=== PATIENT | female | born 1985 | race African-American/Black ===

== ENCOUNTER 2018-03-11 23:36 | Inpatient (IN) | payer OTHER ==
--- NOTE | 2018-03-12 00:35 | PDOC ---
History of Present Illness - General History Source: Care Provider Exam Limitations: No Limitations - History of Present Illness Initial Comments: 03/12/18 01:32 The patient is a 32 year old female, with a significant past medical history of LLE DVT, cerebral palsy, profound MR, congenital quadriplegia, seizure disorder , sent to the ED from [facility] with, left leg swelling. Patient s aid at beside is unaware when the swelling onset because she works solely nights. Aid notes she believes it could be secondary to a fall, however, she is unaware. Allergies: Pork, porcine, shellfish Past surgical history: None reported. Social history: [place] patient. <Gali Beard - Last Filed: 03/12/18 01:31> <Nguyen Aleman - Last Filed: 03/12/18 21:51> - General Stated Complaint: LEG SWELLING Time Seen by Provider: 03/12/18 00:35 Past History <Gali Beard - Last Filed: 03/12/18 01:31> - Past Medical History Dementia: (PROFOUND MR, CONGENITAL SCOLIOSIS) Seizures: Yes - Surgical History Orthopedic Surgery: Yes (L. Ankle) - Suicide/Smoking/Psychosocial Hx Smoking Status: No Smoking History: Never smoked Have you smoked in the past 12 months: No Number of Cigarettes Smoked Daily: 0 Hx Alcohol Use: No Drug/Substance Use Hx: No Substance Use Type: None Hx Substance Use Treatment: No <Nguyen Aleman - Last Filed: 03/12/18 21:51> - Past Medical History Allergies/Adverse Reactions: Allergies Allergy/AdvReac Type Severity Reaction Status Date / Time Pork/Porcine Containing AdvReac Verified 03/12/18 00:45 Products shellfish derived AdvReac Verified 03/12/18 00:45 Home Medications: Ambulatory Orders Calcium 250Mg/Vit-D 125 Units [Oscal 250 mg+D -] 1 combo PO BID 10/18/15 Clindamycin Oral Solution [Cleocin Oral Solution -] 15 ml PO Q8H #450 ml Diazepam [Valium] 2 mg PO BID 10/18/15 Docusate Sodium [Colace -] 300 mg PO HS 10/18/15 Folic Acid 1 mg PO DAILY 10/18/15 Lamotrigine [Lamictal] 100 mg PO TID 10/18/15 Methylcellulose [Citrucel] 1,000 mg PO DAILY 10/18/15 Multivitamin [Poly-Vitamin] 1 each PO DAILY 10/18/15 Review of Systems - Review of Systems Able to Perform ROS?: No Comments:: 03/12/18 01:32 Unable to perform an ROS due to patients MR. <Gali Beard - Last Filed: 03/12/18 01:31> *Physical Exam - Vital Signs Last Vital Signs Temp Pulse Resp BP Pulse Ox 98.6 F 130 H 20 130/89 99 03/12/18 00:45 03/12/18 00:45 03/12/18 00:45 03/12/18 00:45 03/12/18 00:45 <Gali Beard - Last Filed: 03/12/18 01:31> Moderate Sedation - Procedure Monitoring Vital Signs: Procedure Monitoring Vital Signs Temperature 98.6 F 03/12/18 00:45 Pulse Rate 130 H 03/12/18 00:45 Respiratory Rate 20 03/12/18 00:45 Blood Pressure 130/89 03/12/18 00:45 O2 Sat by Pulse Oximetry (%) 99 03/12/18 00:45 <Gali Beard - Last Filed: 03/12/18 01:31> ED Treatment Course - LABORATORY CBC & Chemistry Diagram: 03/12/18 11:15 03/12/18 11:15 <Nguyen lAeman - Last Filed: 03/12/18 21:51> Medical Decision Making - Medical Decision Making 03/12/18 04:36 Patient Name: JOSE ANTONIO JENKINS Exam: Left lower extremity venous Doppler sonogram. Clinical indication: default value Findings The industrial order clerk was unable to visualize the distal left femoral vein and popliteal veins due to swelling. There is normal compression, augmentation, and spontaneous color Doppler flow demonstrated from the left mid femoral vein through to the left common femoral vein inclusive. Impression: 1. Rhit was unable to visualize the distal left femoral vein and popliteal veins due to swelling. 2. No evidence of DVT within the mid left femoral vein through the left common femoral vein. THIS DOCUMENT HAS BEEN ELECTRONICALLY SIGNED 03/12/18 07:48 Pt has a medial femoral head fracture on the left side. She will be placed in a knee immobilizer. Labs are pending, and we will discuss with ortho. Signed out to the day team <Nguyen Aleman - Last Filed: 03/12/18 21:51> *DC/Admit/Observation/Transfer - Attestations Scribe Attestion: 03/12/18 01:33 Documentation prepared by Gali Beard, acting as director medical economics for Nguyen Aleman MD. <Gali Beard - Last Filed: 03/12/18 01:31> <Nguyen Aleman - Last Filed: 03/12/18 21:51> Diagnosis at time of Disposition: Fracture of head of left femur - Discharge Dispostion Condition at time of disposition: Guarded
[2018-03-12 00:46] VITALS: BMI 32.9
--- NOTE | 2018-03-12 09:13 | PDOC ---
*Physical Exam - Vital Signs Last Vital Signs Temp Pulse Resp BP Pulse Ox 97.4 F L 64 20 120/64 100 03/12/18 05:46 03/12/18 05:46 03/12/18 05:46 03/12/18 05:46 03/12/18 05:46 - Physical Exam Comments: 03/12/18 09:09 gen: awake, nonverbal heart: +s1s2 reg lungs: cta b/l, poor inspiratory effort abd: soft, nt/nd ext: L knee swelling, in a straight leg brace, brisk cap refill distally Medical Decision Making - Medical Decision Making 03/12/18 09:10 pt signed out from the prior attending pending admission, labs, and ortho consult pt with a distal femur fx case discussed with Dr. Michel from orthopedics Dr. Thompson at the bedside microblog sent to [facility] for admission 03/12/18 09:36 case idscussed with [facility] who accepts pt to service under Dr. Cano *DC/Admit/Observation/Transfer Diagnosis at time of Disposition: Fracture of head of left femur - Discharge Dispostion Condition at time of disposition: Guarded Decision to Admit order: Yes Decision to Admit order Date/Time: Decision to Admit Order Category Date Time Status Decision to Admit to Hospital Routine Admission 03/12/18 08:14 Active - Referrals - Patient Instructions - Post Discharge Activity
--- NOTE | 2018-03-12 09:22 | CONSULT ---
Consult - text type - Consultation Consultation Note: ORTHOPEDIC SURGERY CONSULTATION NOTE Department of Orthopedic Surgery HISTORY OF PRESENT ILLNESS Ms. Bah is a 32 year old female with history of microcephaly and multiple joint contractures, who presents to [facility] Emergency Room with a medial femoral condyle fracture. The orthopedic service was consulted for a medial femoral condyle fracture. The patient is non-verbal and does not follow commands, which is her baseline. Her aide at bedside states that she [facility] an [facility] and was sent here after their staff noticed some swelling in her left lower extremity. The patient is bed-bound at baseline; Limited history available. FAMILY HISTORY na REVIEW OF SYMPTOMS A twelve-point review of systems was performed and was negative except as noted in HPI. PHYSICAL EXAM Right Upper Extremity: Skin warm, dry, and intact; no lesions, rashes or ulcers noted. Muscle mass equal and symmetric to contralateral side. No atrophy noted. No masses or effusions noted. No tenderness to palpation all joints; nontender throughout rest of extremity. Joints stable with no pathologic laxity. M/R/U/MSK /AX motor intact; SILT distally; 2+ radial pulses; Cap refill brisk. Tone and reflexes normal. Multiple upper extremity contractures of the hand and elbow and shoulder. Left Upper Extremity: Skin warm, dry, and intact; no lesions, rashes or ulcers noted. Muscle mass equal and symmetric to contralateral side. No atrophy noted. No masses or effusions noted. No tenderness to palpation all joins; nontender throughout rest of extremity. Joints stable with no pathologic laxity. M/R/U/MSK /AX motor intact; SILT distally; 2+ radial pulses; Cap refill brisk. Tone and reflexes normal. Multiple upper extremity contractures of the hand and elbow and shoulder. Right Lower Extremity: Skin warm, dry, and intact; no lesions, rashes or ulcers noted. Muscle mass equal and symmetric to contralateral side. No atrophy noted. No masses or effusions noted. No tenderness to palpation; nontender throughout rest of extremity. No cords or calf tenderness No significant calf/ankle edema. Full passive ROM, free from pain. Joints stable with no pathologic laxity. Moving toes spontaneously SILT distally; 2+ PT pulses by bedside doppler; Cap refill brisk. Multiple lower extremity contractures of the foot and knee. Left Lower Extremity: Skin warm, dry, and intact; no lesions, rashes or ulcers noted. Muscle mass equal and symmetric to contralateral side. No atrophy noted. No masses or effusions noted. Tenderness to palpation of the knee, specifically on the medial femoral condyle; nontender throughout rest of extremity. No cords or calf tenderness Mild ankle edema. No calf pain to palpation; Joints stable with no pathologic laxity. SILT distally; 2+ PT pulses by bedside doppler; Cap refill brisk. Multiple lower extremity contractures of the foot and knee. Active Problems Problem Status Category Onset Fracture femoral condyle Acute Medical Social History Smoking history Never smoked Aproximately how many 0 cigarettes per day Hx Alcohol Use No Allergies Allergy/AdvReac Type Severity Reaction Status Date / Time Pork/Porcine Containing AdvReac Verified 03/12/18 00:45 Products shellfish derived AdvReac Verified 03/12/18 00:45 Vital Signs (last) Temp Pulse Resp BP Pulse Ox 97.4 F L 64 20 120/64 100 03/12/18 05:46 03/12/18 05:46 03/12/18 05:46 03/12/18 05:46 03/12/18 05:46 Intake and Output 03/10/18 03/11/18 03/12/18 23:59 23:59 23:59 Other: Weight 180 lb Height 5 ft 2 in Body Mass Index (BMI) 32.9 Weight Measurement Method Estimated by Staff IMAGING I personally reviewed all radiographs, CT, and other imaging. They demonstrate a medial femoral condyle fracture. ASSESSMENT AND PLAN Ms. Bah is a 32 year old female presenting with a left sided medial femoral condyle fracture. We have reviewed the imaging and clinical findings in detail, as well as their potential implications. After appropriate informed discussion, the patient was placed in a well-padded [facility] knee immobilizer. Patient's aide at bedside was instructed regarding: non weight bearing on fractured side in knee immobilizer signs and symptoms of compartment syndrome and need to seek immediate care should new onset numbness, tingling, or significantly increasing pain occur. maintain strict elevation above the level of the heart for the next 3-4 days. - Ice to knee keeping the knee immobilizer clean and dry. avoiding NSAID medications. - physical therapy - nwb LLE All questions were answered. Thank you for involving our team in the care of this patient. Garo Thompson DO Orthopedic Surgery
[2018-03-12 11:22] LABS: BASO % 0.5 % (0-2.0); EOS % 1.3 % (0-4.5); HEMATOCRIT 32.6 % (32.4-45.2); HEMOGLOBIN 11.5 GM/dL (10.7-15.3); LYMPH % 38.2 % (8-40); MCH 30.6 pg (25.7-33.7); MCHC 35.2 g/dl (32.0-36.0); MEAN PLT VOLUME 6.9 fl (7.5-11.1); MONO % 10.7 % (3.8-10.2); NEUT % 49.3 % (42.8-82.8); PLATELET COUNT 372 K/MM3 (134-434); RBC 3.75 M/mm3 (3.60-5.2); RDW 12.8 % (11.6-15.6); WHITE BLOOD COUNT 10.9 K/mm3 (4.0-10.0)
[2018-03-12] MEDS ORDERED: SODIUM CHLORIDE 0.9% 1000 ML INFUS.BAG IV ONE (11:26)
[2018-03-12] MEDS ORDERED: ACETAMINOPHEN 1000 MG/100 ML VIAL (NON FORMULARY) IVPB ONE (11:26)
[2018-03-12 11:37] LABS: INR 1.2 (0.83-1.09); PROTHROMBIN TIME (PATIENT) 14.2 SEC (9.7-13.0)
[2018-03-12 11:41] LABS: ALBUMIN 2.6 g/dl (3.4-5.0); ALK PHOS 88 U/L (45-117); ANION GAP 8 MMOL/L (8-16); BILIRUBIN,TOTAL 0.4 mg/dL (0.2-1); BLOOD UREA NITROGEN 8 mg/dL (7-18); CALCIUM 8.8 mg/dL (8.5-10.1); CHLORIDE 104 mmol/L (98-107); CO2 27 mmol/L (21-32); CREATININE 0.4 mg/dL (0.55-1.3); GLUCOSE,RANDOM 105 mg/dL (74-106); SGOT/AST 25 U/L (15-37); SGPT/ALT 36 U/L (13-61); SODIUM 138 mmol/L (136-145); TOT PROT 6.6 g/dl (6.4-8.2)
--- NOTE | 2018-03-12 13:51 | HP ---
CHIEF COMPLAINT: fall at [place] PCP: Dr. Henriquez - pcp HISTORY OF PRESENT ILLNESS: Patient is a 32 year old female from [facility] with a past medical history of profound MR, largely non verbal, LLE DVT, cerebral palsy, congenital quadriplegia and seizure disorder. Patient was brought in to the ED for evaluation of left leg swelling. On admission a left leg xray shows a left sided medial femoral condyle fracture. Patient was seen by orthopedics and a knee immobilizer was placed. Patient will be monitored for any worsening pain. Patient's aide was at the bedside and denies knowledge of any cause of left leg injury or reason why patient left leg was swollen. Aide states that the patient is bedbound and is unable to get out of bed unassisted. She does not know how the patient sustained an injury to her left leg. I called [facility] to get further information of the possible cause of the fracture. Did patient attempt to get oob on her own? or was there a traumatic fall?I spoke to SHARA Myles who informed me that he is unaware of the cause of of the left leg swelling and possible injury. ER course was notable for: (1) vascular study, left leg negative (2) left distal femoral fracture (3) Recent Travel: PAST MEDICAL HISTORY: profound MR, largely non verbal, LLE DVT, cerebral palsy, congenital quadriplegia and seizure disorder. PAST SURGICAL HISTORY: Social History: Smoking: none Alcohol:none Drugs: none Family History: Allergies Pork/Porcine Containing Products Adverse Reaction (Verified 03/12/18 00:45) NOT GIVEN FOR SYNAGOGUE REASONS shellfish derived Adverse Reaction (Verified 03/12/18 00:45) HOME MEDICATIONS: Home Medications Medication Instructions Recorded Calcium 250Mg/Vit-D 125 Units 1 combo PO BID 10/18/15 [Oscal 250 mg+D -] Clindamycin Oral Solution [Cleocin 15 ml PO Q8H #450 ml 10/18/15 Oral Solution -] Diazepam [Valium] 2 mg PO BID 10/18/15 Docusate Sodium [Colace -] 300 mg PO HS 10/18/15 Folic Acid 1 mg PO DAILY 10/18/15 Lamotrigine [Lamictal] 100 mg PO TID 10/18/15 Methylcellulose [Citrucel] 1,000 mg PO DAILY 10/18/15 Multivitamin [Poly-Vitamin] 1 each PO DAILY 10/18/15 PHYSICAL EXAMINATION Vital Signs - 24 hr 03/12/18 03/12/18 03/12/18 00:45 05:46 11:26 Temperature 98.6 F 97.4 F L 100.4 F H Pulse Rate 130 H Pulse Rate [ 64 Apical] Respiratory 20 20 Rate Blood Pressure 130/89 Blood Pressure 120/64 [Left] O2 Sat by Pulse 99 100 Oximetry (%) 03/12/18 11:28 Temperature Pulse Rate Pulse Rate [ 116 H Apical] Respiratory 16 Rate Blood Pressure Blood Pressure 110/85 [Left] O2 Sat by Pulse 98 Oximetry (%) GENERAL: profound MR, in no acute distress. no pain noted. patient unable to verbalize her needs. HEAD: microcephaly EYES: Pupils equal, round and reactive to light, extraocular movements intact, sclera anicteric, conjunctiva clear. No lid lag. EARS, NOSE, THROAT: Ears normal, nares patent, oropharynx clear without exudates. Moist mucous membranes. NECK: Normal range of motion, supple without lymphadenopathy, JVD, or masses. LUNGS: Breath sounds equal, clear to auscultation bilaterally HEART: Regular rate and rhythm ABDOMEN: Soft, nontender, not distended, normoactive bowel sounds, no guarding, no rebound, no masses. UPPER EXTREMITIES: No peripheral edema. contracted. LOWER EXTREMITIES: No calf tenderness. No peripheral edema. non pitting edema , left foot, bed bound, contracted and deformed lower extremities. NEUROLOGICAL: non verbal PSYCHIATRIC:unable to assess secondary to MR SKIN: no signs of bruising or other signs of injury Laboratory Results - last 24 hr 03/12/18 03/12/18 03/12/18 11:15 11:15 11:15 WBC 10.9 H RBC 3.75 Hgb 11.5 Hct 32.6 MCV 87.0 MCH 30.6 MCHC 35.2 RDW 12.8 Plt Count 372 MPV 6.9 L Absolute Neuts (auto) 5.4 Neutrophils % 49.3 Lymphocytes % 38.2 D Monocytes % 10.7 H Eosinophils % 1.3 Basophils % 0.5 Nucleated RBC % 0 PT with INR 14.20 H INR 1.20 H Sodium 138 Potassium 4.0 Chloride 104 Carbon Dioxide 27 Anion Gap 8 BUN 8 Creatinine 0.4 L Creat Clearance w eGFR > 60 Random Glucose 105 Calcium 8.8 Total Bilirubin 0.4 AST 25 ALT 36 Alkaline Phosphatase 88 Total Protein 6.6 Albumin 2.6 L Blood Type Antibody Screen 03/12/18 11:15 WBC RBC Hgb Hct MCV MCH MCHC RDW Plt Count MPV Absolute Neuts (auto) Neutrophils % Lymphocytes % Monocytes % Eosinophils % Basophils % Nucleated RBC % PT with INR INR Sodium Potassium Chloride Carbon Dioxide Anion Gap BUN Creatinine Creat Clearance w eGFR Random Glucose Calcium Total Bilirubin AST ALT Alkaline Phosphatase Total Protein Albumin Blood Type O POSITIVE Antibody Screen Negative ASSESSMENT/PLAN: Patient is a 32 year old female from [facility] with a past medical history of profound MR, largely non verbal, LLE DVT, cerebral palsy, congenital quadriplegia and seizure disorder. Patient was brought in to the ED for evaluation of left leg swelling. On admission a left leg xray shows a left sided medial femoral condyle fracture. Patient was seen by orthopedics and a knee immobilizer was placed. Patient will be monitored for any worsening pain. Ortho: Left femoral fracture, acute Seen by orthopedics, and knee immobilizer placed on left leg Needs close monitoring of compartment syndrome, monitor leg for any sings of worsening edema or pain Left leg to be elevated above heart level apply ice to knee, pain meds PRN Physical therapy Follow up with ortho Vascular: LLE DVT, history Vascular study 03/12/2018 negative for dvt Neuro: Seizure disorder On Lamictal, valium fen honey thickened fluids, dysphagia pureed diet monitor electrolytes prophy Patient with allergy to porcine/pork, no heparin or lovenox ASA 324mg daily x 1 month disposition: full code. Visit type - Emergency Visit Emergency Visit: Yes ED Registration Date: 03/12/18 Care time: The patient presented to the Emergency Department on the above date and was hospitalized for further evaluation of their emergent condition. - New Patient This patient is new to me today: Yes Date on this admission: 03/12/18 - Critical Care Critical Care patient: No
[2018-03-12] MEDS ORDERED: MORPHINE SULFATE 2 MG/ML VIAL IVPUSH PRN (13:53)
[2018-03-12] MEDS ORDERED: ACETAMINOPHEN 325 MG TABLET (FP) ONE (17:45)
[2018-03-12] MEDS ORDERED: lamoTRIgine 25 MG TABLET ONE (17:46)
[2018-03-12] MEDS: lamoTRIgine 100 MG TABLET (FP) PO SCH (17:58)
[2018-03-12] MEDS: ACETAMINOPHEN 325 MG TABLET (FP) PO SCH (17:58)
[2018-03-12] MEDS ORDERED: DOCUSATE SODIUM 100 MG CAPSULE (FP) PO SCH (22:00)
[2018-03-12] MEDS ORDERED: diazePAM 2 MG TABLET ONE (23:28)
[2018-03-13] MEDS: ASPIRIN 325 MG ENTERIC COATED TABLET (FP) PO SCH ×2 (00:15→12:00)
[2018-03-13] MEDS: diazePAM 2 MG TABLET PO SCH ×2 (00:15→11:57)
[2018-03-13] MEDS: ACETAMINOPHEN 325 MG TABLET (FP) PO SCH ×3 (00:15→11:58)
[2018-03-13] MEDS: CALCIUM 250MG/VIT-D 125 UNITS 1 COMBO TABLET PO SCH ×2 (00:15→11:57)
[2018-03-13] MEDS: lamoTRIgine 100 MG TABLET (FP) PO SCH ×3 (00:15→14:59)
[2018-03-13 08:31] LABS: HEMATOCRIT 33.2 % (32.4-45.2); HEMOGLOBIN 10.5 GM/dL (10.7-15.3); MCH 28.4 pg (25.7-33.7); MCHC 31.7 g/dl (32.0-36.0); MEAN CELL VOLUME 89.7 fl (80-96); MEAN PLT VOLUME 6.9 fl (7.5-11.1); PLATELET COUNT 375 K/MM3 (134-434); RDW 12.6 % (11.6-15.6); WHITE BLOOD COUNT 9.2 K/mm3 (4.0-10.0)
[2018-03-13 09:09] LABS: ANION GAP 7 MMOL/L (8-16); BLOOD UREA NITROGEN 7 mg/dL (7-18); CALCIUM 8.4 mg/dL (8.5-10.1); CHLORIDE 106 mmol/L (98-107); CO2 26 mmol/L (21-32); CREATININE 0.4 mg/dL (0.55-1.3); GLUCOSE,RANDOM 104 mg/dL (74-106); MAGNESIUM 1.6 mg/dL (1.8-2.4); POTASSIUM 4.2 mmol/L (3.5-5.1); SODIUM 140 mmol/L (136-145)
[2018-03-13] MEDS ORDERED: MULTIVITAMINS (DAILY MVI) TABLET (FP) PO SCH (10:00)
[2018-03-13] MEDS ORDERED: FOLIC ACID 1 MG TABLET (FP) PO SCH (10:00)
[2018-03-13] MEDS ORDERED: MAGNESIUM SULF 50% (8.12 MEQ/2 ML-1 GM VIAL) IVPB ONE (10:05)
[2018-03-13] MEDS ORDERED: ASPIRIN 325 MG ENTERIC COATED TABLET (FP) PO SCH ×2 (11:27→22:00)
[2018-03-13] MEDS ORDERED: oxyCODONE HCL 5 MG TABLET PO PRN (11:28)
[2018-03-13] MEDS ORDERED: diazePAM 2 MG TABLET ONE (11:38)
[2018-03-13] MEDS ORDERED: MORPHINE SULFATE 2 MG/ML VIAL ONE (11:38)
[2018-03-13] MEDS ORDERED: MAGNESIUM 1GM/D5W - 1 GM/100 ML IVPB IVPB ONE (11:39)
[2018-03-13 12:00] VITALS: TEMP 99
[2018-03-13] MEDS ORDERED: oxyCODONE HCL 5 MG TABLET PO SCH (12:30)
--- NOTE | 2018-03-13 12:31 | DS ---
Physical Exam: SUBJECTIVE: Patient seen and examined at the bedside. OBJECTIVE: Vital Signs Period Temp Pulse Resp BP Sys/Boateng Pulse Ox Last 24 Hr 97.5 F-99.2 F 108-114 18-20 112-144/68-99 97-98 PHYSICAL EXAM GENERAL: profound MR, in no acute distress. no pain noted. patient unable to verbalize her needs. HEAD: microcephaly EYES: Pupils equal, round and reactive to light, extraocular movements intact, sclera anicteric, conjunctiva clear. No lid lag. EARS, NOSE, THROAT: Ears normal, nares patent, oropharynx clear without exudates. Moist mucous membranes. NECK: Normal range of motion, supple without lymphadenopathy, JVD, or masses. LUNGS: Breath sounds equal, clear to auscultation bilaterally HEART: Regular rate and rhythm ABDOMEN: Soft, nontender, not distended, normoactive bowel sounds, no guarding, no rebound, no masses. UPPER EXTREMITIES: No peripheral edema. contracted. LOWER EXTREMITIES: No calf tenderness. No peripheral edema. non pitting edema , left foot, bed bound, contracted and deformed lower extremities. left knee immobilizer placed. NEUROLOGICAL: non verbal PSYCHIATRIC:unable to assess secondary to MR SKIN: no signs of bruising or other signs of injury LABS Laboratory Results - last 24 hr 03/12/18 03/12/18 03/13/18 11:15 15:30 07:40 WBC 9.2 RBC 3.70 Hgb 10.5 L Hct 33.2 MCV 89.7 MCH 28.4 MCHC 31.7 L RDW 12.6 Plt Count 375 MPV 6.9 L Sodium Potassium Chloride Carbon Dioxide Anion Gap BUN Creatinine Creat Clearance w eGFR Random Glucose Calcium Magnesium Blood Type O POSITIVE O POSITIVE Antibody Screen Negative 03/13/18 07:40 WBC RBC Hgb Hct MCV MCH MCHC RDW Plt Count MPV Sodium 140 Potassium 4.2 Chloride 106 Carbon Dioxide 26 Anion Gap 7 L BUN 7 Creatinine 0.4 L Creat Clearance w eGFR > 60 Random Glucose 104 Calcium 8.4 L Magnesium 1.6 L Blood Type Antibody Screen HOSPITAL COURSE: Patient is a 32 year old female from [facility] with a past medical history of profound MR, largely non verbal, LLE DVT, cerebral palsy, congenital quadriplegia and seizure disorder. Patient was brought in to the ED for evaluation of left leg swelling. On admission a left leg xray shows a left sided medial femoral condyle fracture. Patient was seen by orthopedics and a knee immobilizer was placed. Patient to be transferred back to [facility] Hospital course by problem list: Ortho: Left femoral fracture, acute Seen by orthopedics, and knee immobilizer placed on left leg Needs close monitoring of compartment syndrome, monitor leg for any sings of worsening edema or pain Left leg to be elevated above heart level apply ice to knee, pain meds PRN ASA 325mg BID x 1 month Follow up with ortho in 2-3 weeks. Vascular: LLE DVT, history Vascular study 03/12/2018 negative for dvt Neuro: Seizure disorder On Lamictal, valium fen honey thickened fluids, dysphagia pureed diet monitor electrolytes prophy Patient with allergy to porcine/pork, no heparin or lovenox ASA 324mg daily x 1 month Patient accepted back to [facility] per Dr. Henriquez. Date of Admission:03/12/18 Date of Discharge: 03/13/18 Minutes to complete discharge: 60 Discharge Summary Reason For Visit: FRACTURE OF HEAD OF LEFT FEMUR Current Active Problems Fracture of head of left femur (Acute) Condition: Improved - Instructions Diet, Activity, Other Instructions: Mrs Bah: You were admitted to [facility] on 03/12/2018 for a left swollen leg and you were found to have a left sided Medial Femoral Condyle fracture. Here are our recommendations: Maintain NON WEIGHT bearing of the left side and continue the knee immobilzer at all times. If the dressing below the immobilizer gets wet, please change it immediately. Change dressing with cotton padding (webril) and JARETT bandage weekly (bulky parks dressing) on skin to avoid abrasion by knee immobilizer Maintain strict elevation of the left leg above the level of the heart for the next 3 - 4 days. Apply ice to the knee Keep the immobilizer clean and dry. Continue the Aspriin 325mg Twice per day for a total of 1 month. CLOSE MONITORING FOR SIGNS OF COMPARTMENT SYNDROME Pain management: Oxycodone 10mg every 6-8 hours SCHEDULED for the next 2 -3 days until Pain improves. Then as needed. Follow ups: You will need to be seen by Dr. Thompson (orthopedics) within 2 weeks after discharge. you will need to have a repeat xray of your left extremity BEFORE seeing the orthopedic surgeon. You may have the xray done here at [facility] or at another facility at your choosing. Please have the imaging sent to him. Dr. Garo Thompson - Orthopedics [address] [phone] Please call me with questions [facility] @ [facility] [phone] Referrals: Moncho Henriquez Jr [Non Staff, Medical] - Garo Thompson DO [Staff Physician] - Disposition: [facility] FACILITY - Home Medications Comprehensive Discharge Medication List: Ambulatory Orders Calcium 250Mg/Vit-D 125 Units [Oscal 250 mg+D -] 1 combo PO BID 10/18/15 Diazepam [Valium] 2 mg PO BID 10/18/15 Docusate Sodium [Colace -] 300 mg PO HS 10/18/15 Folic Acid 1 mg PO DAILY 10/18/15 Lamotrigine [Lamictal] 100 mg PO TID 10/18/15 Methylcellulose [Citrucel] 1,000 mg PO DAILY 10/18/15 Multivitamin [Poly-Vitamin] 1 each PO DAILY 10/18/15 Acetaminophen [Tylenol .Regular Strength -] 650 mg PO Q6HPO tablet 03/13/18 Aspirin Coated [Ecotrin -] 325 mg PO BID #0 tablet. 03/13/18 Oxycodone HCl 10 mg PO TID PRN #12 tablet MDD 3 03/13/18 oxyCODONE HCL [Roxicodone -] 10 mg PO Q6H #10 tablet MDD 4 03/13/18 This patient is new to me today: No Emergency Visit: Yes ED Registration Date: 03/12/18 Care time: The patient presented to the Emergency Department on the above date and was hospitalized for further evaluation of their emergent condition. Critical Care patient: No - Discharge Referral Referred to [facility] Med [facility] No
[2018-03-13] MEDS ORDERED: oxyCODONE HCL 5 MG TABLET ONE (13:36)
--- NOTE | 2018-03-13 13:52 | PN ---
Progress Note (short form) - Note Progress Note: ORTHOPEDIC SURGERY PROGRESS NOTE Department of Orthopedic Surgery SUBJECTIVE No acute events overnight. Resting comfortably in bed. Knee immobilizer intact. Aide at bedside. PHYSICAL EXAMINATION General: Resting comfortably. Knee immobilizer intact Left Lower Extremity: Skin warm, dry, and intact; no lesions, rashes or ulcers noted. Muscle mass equal and symmetric to contralateral side. No atrophy noted. No masses or effusions noted. Tenderness to palpation of the knee, specifically on the medial femoral condyle; nontender throughout rest of extremity. No cords or calf tenderness Mild ankle edema. No calf pain to palpation; Joints stable with no pathologic laxity. SILT distally; 2+ PT pulses by bedside doppler; Cap refill brisk. Multiple lower extremity contractures of the foot and knee. Intake & Output 03/11/18 03/12/18 03/13/18 23:59 23:59 23:59 Intake Total 1000 Balance 1000 Intake: IV 1000 ns 1000 Other: Weight 180 lb Height 5 ft 2 in Body Mass Index (BMI) 32.9 Weight Measurement Method Estimated by Staff Active Medications Generic Name Dose Route Start Last Admin Trade Name Freq PRN Reason Stop Dose Admin Acetaminophen 650 mg 03/12/18 15:00 03/13/18 11:58 Tylenol - PO 650 mg Q6HPO CARLOS Administration Aspirin 325 mg 03/13/18 11:27 Ecotrin - PO BID CARLOS Calcium/Vitamin D 1 tab 03/12/18 22:00 03/13/18 11:57 Oscal 250 Mg+D - PO 1 tab BID CARLOS Administration Diazepam 2 mg 03/12/18 22:00 03/13/18 11:57 Valium - PO 2 mg BID CARLOS Administration Docusate Sodium 300 mg 03/12/18 22:00 03/13/18 00:15 Colace - PO 300 mg HS CARLOS Administration Folic Acid 1 mg 03/13/18 10:00 03/13/18 11:57 Folic Acid - PO 1 mg DAILY CARLOS Administration Lamotrigine 100 mg 03/12/18 14:00 03/13/18 06:17 Lamictal - PO 100 mg TID ACRLOS Administration Multivitamins/Minerals/Vitamin C 1 tab 03/13/18 10:00 03/13/18 11:57 Tab-A-Vit - PO 1 tab DAILY CARLOS Administration Non-Formulary Medication 1,000 mg 03/13/18 10:00 Methylcellulose [Citrucel] PO DAILY CARLOS Oxycodone HCl 10 mg 03/13/18 12:30 03/13/18 13:40 Roxicodone - PO 10 mg Q6HPO CARLOS Administration Vital Signs (last) Temp Pulse Resp BP Pulse Ox 99 F 104 H 18 120/63 97 03/13/18 11:55 03/13/18 13:35 03/13/18 11:55 03/13/18 13:35 03/13/18 13:35 Laboratory (coagulation) PT with INR 14.20 SEC (9.7-13.0) H 03/12/18 11:15 Laboratory 03/13/18 07:40 03/13/18 07:40 ASSESSMENT AND PLAN Ms. Bah is a 32 year old female with a left medial femoral condyle fracture. No Surgical management planned at this time. - Pain control: Transition to oral pain medications, minimize narcotic use - DVT prophylaxis - Ice/Elevation LLE in Knee immobilizer at all times - Change dressing with cotton padding (webril) and JARETT bandage weekly (bulky parks dressing) on skin to avoid abrasion by knee immobilizer - Elevate HOB, encourage oral intake - Appreciate medical management (Nutrition optimization, decubitus precautions heel/sacrum) - PT/OT; non-weight bearing left lower extremity - Close neurovascular checks for compartment syndrome monitoring. - Follow up in 3 weeks in our office - obtain x-ray of the left knee the day before office visit. Call [phone] for appointment.
[2018-03-13 15:00] VITALS: BP 104/80; PULSE 98
[2018-03-14] MEDS ORDERED: PSYLLIUM 5.85 GM PACKET PO SCH (10:00)
== END 2018-03-13 17:45 | DRG 340 ==
LOC: JER 23:36 → JERBED 03-12 08:14
PROVIDERS: ADMIT Internal Medicine; ATTEND Nurse Practitioner Family
DX: S72.432A Displaced fracture of medial condyle of left femur, initial encounter for closed fracture (principal); F73 Profound intellectual disabilities; G80.8 Other cerebral palsy; G40.909 Epilepsy, unspecified, not intractable, without status epilepticus; Q02 Microcephaly; Z74.01 Bed confinement status; W19.XXXA Unspecified fall, initial encounter; Y93.89 Activity, other specified; Z86.718 Personal history of other venous thrombosis and embolism; Y92.89 Other specified places as the place of occurrence of the external cause; Y99.8 Other external cause status; S72.002A Fracture of unspecified part of neck of left femur, initial encounter for closed fracture
CPT/HCPCS: 36415; 73552-TC-LT-FY; 73560-TC-LT-FY; 73590-TC-LT-FY; 80048; 80053; 83735; 85025; 85027; 85610; 86850; 86900; 86901; 93971-TC; 99285-25; J0131; J7030

== ENCOUNTER 2018-10-19 07:24 | Emergency (ER) | payer OTHER | END 2018-10-19 13:29 | disposition home or self-care (01) | LOC: JER 07:24 ==

== ENCOUNTER 2020-08-10 08:26 | Emergency (ER) | payer OTHER ==
[2020-08-10 08:48] VITALS: BP 118/73; PULSE 98; TEMP 97; BMI 16.5
== END 2020-08-10 11:22 | disposition home or self-care (01) ==
LOC: JER 08:26
PROC: 0HQ1XZZ Repair Face Skin, External Approach (ICD-10-PCS; principal; 2020-08-10)
DX: S01.81XA Laceration without foreign body of other part of head, initial encounter (principal); W22.8XXA Striking against or struck by other objects, initial encounter
CPT/HCPCS: 99282-25

== ENCOUNTER 2022-06-23 12:24 | Emergency (ER) | payer OTHER ==
[2022-06-23 13:19] VITALS: BMI 21.0
[2022-06-23 18:08] VITALS: BP 136/87; PULSE 108; RESP 18; TEMP 98
== END 2022-06-23 18:21 ==
LOC: JER 12:24
PROC: 2W3SX1Z Immobilization of Right Foot using Splint (ICD-10-PCS; principal; 2022-06-23)
DX: S92.314A Nondisplaced fracture of first metatarsal bone, right foot, initial encounter for closed fracture (principal); Y99.9 Unspecified external cause status
CPT/HCPCS: 73630-TC-RT-FY; 93005; 93010; 93971-TC; 99285-25

== ENCOUNTER 2023-01-22 22:42 | Emergency (ER) | payer OTHER ==
[2023-01-22 22:50] VITALS: BP 120/82; PULSE 82; RESP 18; TEMP 97.6; BMI 26.2
[2023-01-23 00:46] LABS: BASO % 0.3 % (0-2.0); EOS % 1.7 % (0-4.5); HEMATOCRIT 39.1 % (32.4-45.2); HEMOGLOBIN 12.7 GM/dL (10.7-15.3); MCH 28.6 pg (25.7-33.7); MCHC 32.4 g/dl (32.0-36.0); MEAN CELL VOLUME 88.3 fl (80-96); MEAN PLT VOLUME 7.2 fl (7.5-11.1); MONO % 6.5 % (3.8-10.2); NEUT % 66.5 % (42.8-82.8); PLATELET COUNT 364 10^3/uL (134-434); RBC 4.43 M/mm3 (3.60-5.2); WHITE BLOOD COUNT 13.9 K/mm3 (4.0-10.0)
[2023-01-23 01:08] LABS: ALBUMIN 2.7 g/dl (3.4-5.0); BLOOD UREA NITROGEN 10.4 mg/dL (7-18); CALCIUM 9.3 mg/dL (8.5-10.1)
[2023-01-23 01:11] LABS: CREATININE 0.4 mg/dL (0.55-1.3)
[2023-01-23 01:13] LABS: BILIRUBIN,TOTAL 0.2 mg/dL (0.2-1); TOT PROT 6.7 g/dl (6.4-8.2)
[2023-01-23] MEDS ORDERED: CEPHALEXIN 250 MG/5 ML ORAL SUSPENSION PO ONE (01:24)
== END 2023-01-23 02:34 ==
LOC: JER 22:42
DX: R21 Rash and other nonspecific skin eruption (principal); L03.115 Cellulitis of right lower limb
CPT/HCPCS: 36415; 73610-TC-RT-FY; 73630-TC-RT-FY; 80053; 85025; 99283-25

== ENCOUNTER 2023-05-05 10:58 | Observation (INO) | payer OTHER ==
[2023-05-05 12:54] LABS: BASO % 0.5 % (0-2.0); EOS % 0.3 % (0-4.5); HEMATOCRIT 36.2 % (32.4-45.2); HEMOGLOBIN 11.7 GM/dL (10.7-15.3); LYMPH % 22.7 % (8-40); MCH 29.1 pg (25.7-33.7); MCHC 32.4 g/dl (32.0-36.0); MEAN CELL VOLUME 89.8 fl (80-96); MEAN PLT VOLUME 6.8 fl (7.5-11.1); NEUT % 71.5 % (42.8-82.8); PLATELET COUNT 346 10^3/uL (134-434); RBC 4.03 M/mm3 (3.60-5.2); RDW 13.4 % (11.6-15.6); WHITE BLOOD COUNT 13.1 K/mm3 (4.0-10.0)
[2023-05-05 13:02] LABS: INR 1.05 (0.83-1.09); PROTHROMBIN TIME (PATIENT) 12.2 SEC (9.7-13.0)
[2023-05-05 13:05] LABS: ACTIVATED PTT 36.1 SECONDS (25.2-36.5)
[2023-05-05 13:10] LABS: EPI CELLS 27 /uL (0-25.1); HYALINE CASTS 0 /uL (0-3.1); URINE APPEARANCE CLEAR; URINE BACTERIA 49 /uL (0-1359); URINE BILIRUBIN NEGATIVE (NEGATIVE); URINE COLOR YELLOW; URINE GLUCOSE (UA) NEGATIVE (NEGATIVE); URINE KETONE NEGATIVE (NEGATIVE); URINE LEUK ESTERASE NEGATIVE (NEGATIVE); URINE NITRITE NEGATIVE (NEGATIVE); URINE PROTEIN 3+ (NEGATIVE); URINE RBC 93 /uL (0-23.9); URINE UROBILINOGEN 0.2 mg/dL (0.2-1.0); URINE WBC 13 /uL (0-25.8)
[2023-05-05 13:13] LABS: POTASSIUM 5.4 mmol/L (3.5-5.1)
[2023-05-05 13:15] LABS: ALBUMIN 2.7 g/dl (3.4-5.0); CALCIUM 9.5 mg/dL (8.5-10.1)
[2023-05-05 13:18] LABS: CREATININE 0.3 mg/dL (0.55-1.3)
[2023-05-05 13:20] LABS: BILIRUBIN,TOTAL 0.4 mg/dL (0.2-1); TOT PROT 6.9 g/dl (6.4-8.2)
[2023-05-05 20:57] VITALS: BMI 15.0
[2023-05-05] MEDS: lamoTRIgine 100 MG TABLET PO SCH (23:15)
[2023-05-05] MEDS: diazePAM 2 MG TABLET PO SCH (23:15)
[2023-05-05] MEDS: SODIUM CHLORIDE 1,000 ML IV SCH (23:37)
[2023-05-06 02:34] VITALS: RESP 18
[2023-05-06 07:06] LABS: HEMATOCRIT 36.2 % (32.4-45.2); HEMOGLOBIN 11.4 GM/dL (10.7-15.3); MCH 28.4 pg (25.7-33.7); MCHC 31.5 g/dl (32.0-36.0); MEAN CELL VOLUME 90.3 fl (80-96); MEAN PLT VOLUME 7.4 fl (7.5-11.1); PLATELET COUNT 345 10^3/uL (134-434); RBC 4.01 M/mm3 (3.60-5.2); WHITE BLOOD COUNT 8.3 K/mm3 (4.0-10.0)
[2023-05-06 07:08] LABS: INR 1.14 (0.83-1.09); PROTHROMBIN TIME (PATIENT) 13.2 SEC (9.7-13.0)
[2023-05-06 07:21] LABS: POTASSIUM 3.9 mmol/L (3.5-5.1)
[2023-05-06 07:34] LABS: CALCIUM 8.9 mg/dL (8.5-10.1)
[2023-05-06 07:36] LABS: ALBUMIN 2.5 g/dl (3.4-5.0)
[2023-05-06 07:38] LABS: CREATININE 0.4 mg/dL (0.55-1.3); MAGNESIUM 2.1 mg/dL (1.8-2.4)
[2023-05-06 07:42] LABS: BILIRUBIN,TOTAL 0.3 mg/dL (0.2-1)
[2023-05-06 08:56] VITALS: BP 140/95; PULSE 93; TEMP 98.7
[2023-05-06] MEDS ORDERED: diazePAM 2 MG TABLET PO SCH ×2 (13:00→22:00)
== END 2023-05-06 16:10 | disposition home or self-care (01) ==
LOC: JER 10:58 → JERBED 15:17 → J4W 18:58
PROVIDERS: ADMIT Internal Medicine; ATTEND Internal Medicine
PROC: 3E033GC Introduction of Other Therapeutic Substance into Peripheral Vein, Percutaneous Approach (ICD-10-PCS; principal; 2023-05-05)
PROC: 3E0337Z Introduction of Electrolytic and Water Balance Substance into Peripheral Vein, Percutaneous Approach (ICD-10-PCS; 2023-05-05)
DX: R55 Syncope and collapse (principal); R94.31 Abnormal electrocardiogram [ECG] [EKG]; E78.5 Hyperlipidemia, unspecified; M81.0 Age-related osteoporosis without current pathological fracture; Q02 Microcephaly; G82.52 Quadriplegia, C1-C4 incomplete; G40.409 Other generalized epilepsy and epileptic syndromes, not intractable, without status epilepticus; F79 Unspecified intellectual disabilities
CPT/HCPCS: 0241U-QW; 36415; 71045-TC-FY; 80053; 81003; 82550; 82553; 83735; 84100; 84484; 85025; 85027; 85610; 85730; 86850; 86900; 86901; 87077; 87086; 93005; 93010; 93306-TC; 93880-TC; 96374; 99285-25; G0378

== ENCOUNTER 2023-05-20 06:59 | Emergency (ER) | payer OTHER ==
[2023-05-20 07:36] VITALS: RESP 19; BMI 20.7
[2023-05-20 09:26] VITALS: BP 142/91; PULSE 99; TEMP 97.3
== END 2023-05-20 10:00 ==
LOC: JER 06:59
DX: S73.005A Unspecified dislocation of left hip, initial encounter (principal); W06.XXXA Fall from bed, initial encounter
CPT/HCPCS: 71045-TC-FY; 72170-TC-FY; 99284-25

== ENCOUNTER 2023-06-13 00:29 | Emergency (ER) | payer OTHER ==
[2023-06-13 01:24] VITALS: BMI 25.6
[2023-06-13 06:55] VITALS: BP 119/75; PULSE 108; RESP 18; TEMP 98.2
== END 2023-06-13 07:06 | disposition home or self-care (01) ==
LOC: JER 00:29
DX: R22.42 Localized swelling, mass and lump, left lower limb (principal); S82.102A Unspecified fracture of upper end of left tibia, initial encounter for closed fracture; X58.XXXA Exposure to other specified factors, initial encounter
CPT/HCPCS: 73590-TC-LT-FY; 93970-TC; 99284-25

== ENCOUNTER 2023-10-14 15:04 | Emergency (ER) | payer OTHER ==
[2023-10-14 15:15] VITALS: PULSE 86; RESP 16; TEMP 97.8; BMI 40.5
[2023-10-14 15:38] VITALS: BP 126/74
== END 2023-10-14 20:26 | disposition home or self-care (01) ==
LOC: JER 15:04
DX: M79.89 Other specified soft tissue disorders (principal)
CPT/HCPCS: 73502-TC-RT-FY; 73552-TC-RT-FY; 73590-TC-RT-FY; 73610-TC-RT-FY; 73630-TC-RT-FY; 93971-TC; 99284-25

== ENCOUNTER 2023-12-27 11:37 | Emergency (ER) | payer OTHER ==
[2023-12-27 12:39] VITALS: BP 131/95; PULSE 91; RESP 20; TEMP 98.8; BMI 20.7
[2023-12-27] MEDS ORDERED: MIDAZOLAM HCL 2 MG/2 ML SINGLE DOSE VIAL ONE ×2 (13:44→14:34)
[2023-12-27] MEDS: MIDAZOLAM HCL 2 MG/2 ML SINGLE DOSE VIAL IM ONE ×2 (13:56→14:37)
== END 2023-12-27 16:37 | disposition home or self-care (01) ==
LOC: JER 11:37
PROC: 3E033GC Introduction of Other Therapeutic Substance into Peripheral Vein, Percutaneous Approach (ICD-10-PCS; principal; 2023-12-27)
PROC: 3E033GC Introduction of Other Therapeutic Substance into Peripheral Vein, Percutaneous Approach (ICD-10-PCS; 2023-12-27)
DX: S00.11XA Contusion of right eyelid and periocular area, initial encounter (principal); M41.9 Scoliosis, unspecified; G89.29 Other chronic pain; W19.XXXA Unspecified fall, initial encounter
CPT/HCPCS: 70450-TC; 99284-25